=== PATIENT | female | born 1980 | race Caucasian/White ===

== ENCOUNTER 2021-02-26 14:54 | Outpatient (REF) | payer OTHER, SELFPAY ==
--- NOTE | ~2021-02-26 | MR_ITS ---
EXAMINATION: MR THORACIC SPINE WITHOUT AND WITH CONTRAST CLINICAL INFORMATION: Multiple sclerosis. COMPARISON: MRI cervical spine 09/30/2017. TECHNIQUE: Multiplanar MR imaging of the thoracic spine was performed without and with contrast. A total of 10 mL Gadavist was utilized for this examination. FINDINGS: There is a single eccentric short segment of increased intramedullary T2 signal intensity and enhancement involving the dorsal aspect of the lower thoracic spinal cord at the level of T11. Otherwise no abnormal intramedullary signal or enhancement visualized elsewhere within the [id number] of this examination. Alignment is normal. Vertebral body heights are preserved. No acute bone marrow signal changes. There is slight loss of intervertebral disc height and T2 signal intensity at multiple levels related to disc degeneration. Annular contours are normal and there is no canal or neuroforaminal compromise. No cord compression. Limited visualization of the intrathoracic anatomy reveals no abnormal finding. Specifically no paraspinal soft tissue mass or collection. MR/MR thoracic spine wo/w con IMPRESSION: There is a single white matter lesion involving the dorsal aspect of the thoracic cord at the level of T11 with associated enhancement on postcontrast images consistent with active demyelination the clinical setting of multiple sclerosis. Otherwise normal examination.
== END 2021-02-26 14:55 | disposition home or self-care (01) ==
LOC: HO.MRI 14:54
PROVIDERS: Visit Provider Psychiatry & Neurology Neurology
DX: G35 Multiple sclerosis (principal)
CPT/HCPCS: 72157; A9585

== ENCOUNTER 2021-03-06 15:16 | Outpatient (REF) | payer OTHER, SELFPAY ==
[2021-03-06 15:54] LABS: MANUAL DIFF FLAG NO
[2021-03-06 15:59] LABS: Basophils Absolute Auto 0.1 X10*3/uL (0.0-0.2); Basophils Percent Auto 0.5 % (0-2); Eosinophils Absolute Auto 0.3 X10*3/uL (0.0-0.4); Eosinophils Percent Auto 2.2 % (0-4); Hematocrit 39.7 % (37-47); Hemoglobin 13.7 g/dl (12.0-16.0); Imm Gran Abs Auto 0.05 X10*3/uL (0.00-0.03); Imm Gran Pct Auto 0.4 % (0.0-0.4); Lymphocytes Absolute Auto 2.5 X10*3/uL (1.2-4.9); Mean Corpuscular HGB Conc 34.5 g/dl (31.0-35.0); Mean Corpuscular Hemoglobin 30.8 pg (27.0-33.0); Mean Corpuscular Volume 89.2 fL (80-98); Mean Platelet Volume 10.6 fL (9.4-12.3); Monocytes Percent Auto 8.5 % (2-11); Neutrophils Absolute Auto 7.9 X10*3/uL (2.0-8.3); Neutrophils Percent Auto 67.4 % (45-73); Platelet Count 298 X10*3/uL (160-400); Red Blood Count 4.45 X10*6/uL (4.20-5.50); White Blood Count 11.7 X10*3/uL (4.8-10.8)
[2021-03-13 00:11] LABS: JCV Antibody INDETERMINATE; JCV Index Value 0.39
[2021-03-13 00:32] LABS: JCV Ab Inhibition FINAL RSLT: POSITIVE
== END 2021-03-06 15:17 | disposition home or self-care (01) ==
LOC: HO.LAB 15:16
PROVIDERS: Visit Provider Psychiatry & Neurology Neurology
DX: G35 Multiple sclerosis (principal)
CPT/HCPCS: 36415; 85025; 86711

== ENCOUNTER 2021-03-11 17:53 | Outpatient (REF) | payer OTHER, SELFPAY ==
--- NOTE | ~2021-03-11 | MR_ITS ---
EXAMINATION: MR BRAIN WITHOUT AND WITH CONTRAST CLINICAL INFORMATION: 40-year-old with MS. Follow-up exam. COMPARISON: 01/19/2019 MRI TECHNIQUE: Multiplanar, multisequence MRI of the brain was obtained before and after the intravenous administration of 10 mL Gadavist. FINDINGS: BRAIN VOLUME: Within normal limits. 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 BRAIN AND MENINGES: DWI sequence demonstrates no restricted diffusion to suggest acute or subacute cerebral ischemia. Redemonstrated are a few small T2 hyperintense right peritrigonal white matter lesions which are stable. There is a small T2 hyperintense lesion in the subcortical left frontal white matter near the convexity stable in appearance. A few punctate white matter T2 hyperintensities are seen in the subcortical white matter of the right posterior frontal lobe stable in appearance. There is a small T2 hyperintense lesion in the left peritrigonal white matter which is a new finding. Remainder of the brain is normal in morphology and signal intensity. Gradient echo imaging demonstrates no evidence for hemorrhage, hemosiderin staining or abnormal mineral deposition. No abnormal enhancement, mass lesion, space-occupying process or mass effect. VENTRICLES AND SUBARACHNOID SPACES: The ventricular system and subarachnoid spaces are within normal limits in appearance without hydrocephalus. ORBITAL STRUCTURES: The visualized orbital structures are grossly unremarkable within the limitations of the study. VASCULAR: Signal voids are noted in the visualized major intracranial vessels. SINUSES AND OSSEOUS STRUCTURES: Bony structures appear grossly unremarkable. MR/MR head/brain wo/w con IMPRESSION: 1. Multiple small T2 hyperintense nonenhancing white matter lesions in the cerebral hemispheres as described above, most of which are stable. There is a new tiny left peritrigonal white matter lesion with no abnormal enhancement since the previous study. 2. 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
== END 2021-03-11 17:54 | disposition home or self-care (01) ==
LOC: HO.MRI 17:53
PROVIDERS: Visit Provider Psychiatry & Neurology Neurology
DX: G35 Multiple sclerosis (principal)
CPT/HCPCS: 70553; A9585

== ENCOUNTER 2021-03-18 08:56 | Outpatient (REF) | payer OTHER, SELFPAY | END 2021-03-18 08:57 | disposition home or self-care (01) | LOC: HO.MDS 08:56 | PROVIDERS: Visit Provider Psychiatry & Neurology Neurology | DX: G35 Multiple sclerosis (principal) | CPT/HCPCS: 96365; J2930 ==

== ENCOUNTER 2021-03-19 08:46 | Outpatient (REF) | payer OTHER, SELFPAY | END 2021-03-19 08:47 | disposition home or self-care (01) | LOC: HO.MDS 08:46 | PROVIDERS: Visit Provider Psychiatry & Neurology Neurology | DX: G35 Multiple sclerosis (principal) | CPT/HCPCS: 96365; J2930 ==

== ENCOUNTER 2021-03-20 13:18 | Outpatient (REF) | payer OTHER, SELFPAY | END 2021-03-20 13:19 | disposition home or self-care (01) | LOC: HO.MDS 13:18 | PROVIDERS: Visit Provider Psychiatry & Neurology Neurology | DX: G35 Multiple sclerosis (principal) | CPT/HCPCS: 96365; J2930 ==